=== PATIENT | female | born 1935 ===

== ENCOUNTER 2017-09-18 11:55 | Inpatient (IN) | payer MEDICARE, OTHER ==
[2017-09-18 11:55] VITALS: BMI 31.1
[2017-09-18] MEDS ORDERED: Albuterol-Ipratrop 3 mg / 0.5 (3 ml) UD INH STA (12:46)
[2017-09-18] MEDS ORDERED: Azithromycin 500 MG in Sodium Chloride 0.9% 250 ML IV STA (12:46)
[2017-09-18] MEDS ORDERED: Sodium Chloride 0.9% 1,000 ML IV STA (12:46)
--- NOTE | 2017-09-18 12:53 | ED PDOC ---
HPI: General Adult Time Seen by Provider: 09/18/17 12:18 Chief Complaint (Nursing): Cough, Cold, Congestion Chief Complaint (Provider): Cough, Pleuritic Chest Pain, Fever History Per: Patient History/Exam Limitations: no limitations Onset/Duration Of Symptoms: Days (2 days) Current Symptoms Are (Timing): Still Present Additional Complaint(s): Patient is an 82 y/o female with past medical history of hypertension who presents to the ED complaining of non-productive cough, pleuritic chest pain, and subjective fever x 2 days. She denies any nausea, vomiting, or diarrhea. PCP: Amy Dubois Past Medical History Reviewed: Historical Data, Nursing Documentation, Vital Signs Vital Signs: Last Vital Signs Temp 100.3 F H 09/18/17 12:31 Pulse 87 09/18/17 14:24 Resp 16 09/18/17 14:24 BP 150/93 H 09/18/17 14:24 Pulse Ox 96 09/18/17 14:24 - Medical History PMH: Arthritis, HTN, Hypercholesterolemia, Osteoporosis Denies: Chronic Kidney Disease - Surgical History Other surgeries: Eye surgery bilateral - Family History Family History: States: No Known Family Hx - Social History Current smoker - smoking cessation education provided: No Alcohol: None Drugs: Denies - Home Medications Home Medications: Ambulatory Orders Medication Instructions Recorded Alendronate Sodium [Alendronate 35 mg PO DAILY 03/16/16 (Fosamax)] Cholecalciferol (Vitamin D3) 50,000 unit PO QWK 03/16/16 [Vitamin D3] Valsartan/Hydrochlorothiazide 12.5 - 80 mg PO DAILY 03/16/16 [Valsartan-Hctz 80-12.5 mg Tab] Cholecalciferol (Vitamin D3) [Good 1 tab PO DAILY 03/22/16 [facility] Vitamin Health D 90 mg] Clopidogrel [Plavix] 75 mg PO DAILY 03/22/16 Omeprazole [Prilosec] 20 mg PO DAILY 03/22/16 Simvastatin 20 mg PO DAILY 03/22/16 Nitrofurantoin Macrocrystals 100 mg PO BID #14 cap 06/22/16 [Macrobid] Phenazopyridine [Pyridium] 200 mg PO TID PRN #6 tab 06/22/16 - Allergies Allergies/Adverse Reactions: Allergies Allergy/AdvReac Type Severity Reaction Status Date / Time No Known Allergies Allergy Verified 09/18/17 12:28 Review of Systems ROS Statement: Except As Marked, All Systems Reviewed And Found Negative Constitutional: Positive for: Fever (subjective) Cardiovascular: Positive for: Chest Pain (Pleuritic) Respiratory: Positive for: Cough (productive) Gastrointestinal: Negative for: Nausea, Vomiting, Diarrhea Physical Exam - Reviewed Nursing Documentation Reviewed: Yes Vital Signs Reviewed: Yes - Physical Exam Appears: Positive for: Non-toxic, No Acute Distress Head Exam: Positive for: ATRAUMATIC, NORMOCEPHALIC Skin: Positive for: Normal Color, Warm, Dry Eye Exam: Positive for: Normal appearance, EOMI, PERRL Neck: Positive for: Normal, Painless ROM, Supple Cardiovascular/Chest: Positive for: Regular Rate, Rhythm. Negative for: Murmur Respiratory: Positive for: Normal Breath Sounds, Wheezing (Bilateral). Negative for: Respiratory Distress Gastrointestinal/Abdominal: Positive for: Normal Exam, Soft. Negative for: Tenderness Back: Positive for: Normal Inspection. Negative for: L CVA Tenderness, R CVA Tenderness, Vertebral Tenderness Extremity: Positive for: Normal ROM. Negative for: Pedal Edema, Deformity Neurologic/Psych: Positive for: Alert, Oriented (x3), Other (Speaking in full sentences). Negative for: Motor/Sensory Deficits - Laboratory Results Result Diagrams: 09/18/17 12:58 09/18/17 12:58 - ECG Interpretation Of ECG: NSR @ 87, LAD, LVH (unchanged from 06/22/16). O2 Sat by Pulse Oximetry: 96 (RA) Pulse Ox Interpretation: Normal Medical Decision Making Medical Decision Makin:45 Initial Impression: Fever, Flu, Pneumonia, Bronchitis Initial Plan: --Venous Blood Gas Shock Panel --Comp Metabolic Panel --Troponin I --ED Urine Dipstick --CBC --PTT --Prothrombin Time --Chest X-Ray Portable (Stop Req) --Chest X-Ray Two Views --Albuterol/Ipratropium 3 ml INH --Sodium Chloride 0.9% IV 125 mls/hr --Rocephin 1 gm, Sodium Chloride 0.9% 100 ml IV --Zithromax 500mg, Sodium Chloride 0.9% 250 ml IV --Blood Culture --Urine Culture --Peak Flow Pre/Post Treatment --Influenza A B --Urinalysis 14:08 Chest X-Ray Results FINDINGS: Examination limited by habitus. LUNGS: No focal consolidation. Please note that chest x-ray has limited sensitivity for the detection of pulmonary masses. PLEURA: No significant pleural effusion. No definite pneumothorax . CARDIOVASCULAR: Cardiomegaly. 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 Atherosclerotic calcifications. OSSEOUS STRUCTURES: Degenerative changes. Osseous demineralization. VISUALIZED UPPER ABDOMEN: Unremarkable. OTHER FINDINGS: None. IMPRESSION: No focal consolidation, significant pleural effusion, or definite pneumothorax identified. Borderline cardiomegaly. 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 Correlate clinically. Atherosclerotic calcifications. Scribe Attestation: Documented by Keron Lopez, acting as a scribe for Shantelle Wisdom MD Provider Scribe Attestation: All medical record entries made by the Scribe were at my direction and personally dictated by me. I have reviewed the chart and agree that the record accurately reflects my personal performance of the history, physical exam, medical decision making, and the department course for this patient. I have also personally directed, reviewed, and agree with the discharge instructions and disposition. Disposition - Clinical Impression Clinical Impression: Influenza A, Acute wheezy bronchitis - Patient ED Disposition Is Patient to be Admitted: Yes - Disposition Disposition Time: 14:35 Condition: STABLE Forms: [employer] (Georgian) - Pt Status Changed To: Hospital Disposition Of: Inpatient - Admit Certification Admit to Inpatient:: After my assessment, the patient will require hospitalization for at least two midnights. This is because of the severity of symptoms shown, intensity of services needed, and/or the medical risk in this patient being treated as an outpatient. - POA Present On Arrival: None
[2017-09-18] MEDS ORDERED: Albuterol-Ipratrop 3 mg / 0.5 (3 ml) UD ONE (12:58)
[2017-09-18 13:04] LABS: VENOUS BLOOD GAS BASE EXCESS 2.9 mmol/L (0.0-2.0); VENOUS BLOOD GAS PCO2 43 mmHg (40-60); VENOUS BLOOD GAS PO2 28 mm/Hg (30-55); VENOUS BLOOD PH 7.42 (7.32-7.43)
[2017-09-18] MEDS ORDERED: cefTRIAXone IV 1 gm in Dextros 50 ML IVPB STA (13:08)
[2017-09-18] MEDS ORDERED: cefTRIAXone IV 1 gm in Dextros 50 ML IVPB ONE (13:16)
[2017-09-18 13:20] LABS: ALB/GLOB RATIO 1.2 (1.0-2.1); ALBUMIN 3.9 g/dL (3.5-5.0); ALT/SGPT 38 U/L (9-52); AST/SGOT 33 U/L (14-36); BLOOD UREA NITROGEN 16 mg/dl (7-17); CALCIUM 9.1 mg/dL (8.4-10.2); GFR AFRICAN-AMERICAN > 60; GFR NON-AFRICAN AMERICAN 60
[2017-09-18 13:55] LABS: BASO % 0.8 % (0.0-2.0); EOS % 0.1 % (0.0-4.0); HEMOGLOBIN 12.8 g/dL (12.0-16.0); LYMPH # 0.8 K/uL (1.0-4.3); LYMPH % 16.5 % (20.0-40.0); MEAN CELL VOLUME 83.6 fl (81.0-99.0); MEAN CORPUSCULAR HEMOGLOBIN 27.3 pg (27.0-31.0); MEAN CORPUSCULAR HGB CONC 32.7 g/dL (33.0-37.0); MEAN PLATELET VOLUME 10.7 fl (7.2-11.7); MONO # 0.6 K/uL (0.0-0.8); MONO % 12.6 % (0.0-10.0); NEUT # 3.4 K/uL (1.8-7.0); NRBC % 0.2 % (0.0-0.0); RBC 4.68 Mil/uL (3.80-5.20); RED CELL DISTRIBUTION WIDTH 14.4 % (11.5-14.5); WHITE BLOOD COUNT 4.8 K/uL (4.8-10.8)
[2017-09-18 14:07] LABS: INR 1.1 (0.9-1.2); PARTIAL THROMBOPLASTIN TIME 31.6 Seconds (25.6-37.1); PROTHROMBIN TIME 11.9 Seconds (9.8-13.1)
--- NOTE | 2017-09-18 14:10 | RAD ---
HISTORY: Cough, fever COMPARISON: Chest x-ray performed 06/22/16 TECHNIQUE: Chest PA and lateral FINDINGS: Examination limited by habitus. LUNGS: No focal consolidation. Please note that chest x-ray has limited sensitivity for the detection of pulmonary masses. PLEURA: No significant pleural effusion. No definite pneumothorax . CARDIOVASCULAR: Cardiomegaly. 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 Atherosclerotic calcifications. OSSEOUS STRUCTURES: Degenerative changes. Osseous demineralization. VISUALIZED UPPER ABDOMEN: Unremarkable. OTHER FINDINGS: None. IMPRESSION: No focal consolidation, significant pleural effusion, or definite pneumothorax identified. Borderline cardiomegaly. 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 Correlate clinically. Atherosclerotic calcifications.
[2017-09-18 14:22] LABS: SQUAMOUS EPITHIAL 2 /hpf (0-5); URINE BILIRUBIN NEGATIVE (NEGATIVE); URINE BLOOD NEGATIVE (NEGATIVE); URINE CLARITY CLOUDY (Clear); URINE COLOR YELLOW (YELLOW); URINE GLUCOSE (UA) NEG (Normal); URINE LEUKOCYTE ESTERASE NEG Leu/uL (Negative); URINE NITRATE NEGATIVE (NEGATIVE); URINE PROTEIN 30 mg/dL (NEGATIVE); URINE UROBILINOGEN 0.2-1.0 mg/dL (0.2-1.0)
[2017-09-18] MEDS ORDERED: Albuterol-Ipratrop 3 mg / 0.5 (3 ml) UD INH PRN (15:41)
--- NOTE | 2017-09-19 01:27 | CP.PCM.HP ---
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 - HEENT Hx HEENT Problems: Yes Hx Cataracts: Yes - RENAL Hx Chronic Kidney Disease: No - ENDOCRINE/METABOLIC Hx Endocrine Disorders: No - HEMATOLOGICAL/ONCOLOGICAL Hx Blood Disorders: No Hx AIDS: No Hx Human Immunodeficiency Virus (HIV): No - INTEGUMENTARY Hx Dermatological Problems: No - MUSCULOSKELETAL/RHEUMATOLOGICAL Hx Arthritis: Yes Hx Falls: Yes Hx Osteoporosis: Yes - GASTROINTESTINAL Hx Gastrointestinal Disorders: No - GENITOURINARY/GYNECOLOGICAL Hx Genitourinary Disorders: No - PSYCHIATRIC Hx Psychophysiologic Disorder: No Hx Emotional Abuse: No Hx Physical Abuse: No Hx Substance Use: No - SURGICAL HISTORY Hx Surgeries: Yes Hx Eye Surgery: Yes (BILATERAL) - ANESTHESIA Hx Anesthesia: Yes Hx Anesthesia Reactions: No Hx Malignant Hyperthermia: No Has any member of the family had a problem w/ anesthesia?: No Meds Allergies/Adverse Reactions: Allergies Allergy/AdvReac Type Severity Reaction Status Date / Time No Known Allergies Allergy Verified 09/18/17 12:28 Results - Vital Signs Recent Vital Signs: Last Vital Signs Temp 98.3 F 09/19/17 00:19 Pulse 66 09/19/17 00:19 Resp 18 09/19/17 00:19 BP 150/76 09/19/17 00:19 Pulse Ox 95 09/19/17 00:19 - Labs Result Diagrams: 09/18/17 12:58 09/18/17 12:58 Labs: Laboratory Results - last 24 hr 09/18/17 09/18/17 09/18/17 12:51 12:58 12:58 WBC 4.8 D RBC 4.68 Hgb 12.8 Hct 39.1 MCV 83.6 MCH 27.3 MCHC 32.7 L RDW 14.4 Plt Count 110 L MPV 10.7 Neut % (Auto) 70.0 Lymph % (Auto) 16.5 L [place] % (Auto) 12.6 H Eos % (Auto) 0.1 Baso % (Auto) 0.8 Neut # 3.4 Lymph # 0.8 L [place] # 0.6 Eos # 0.0 Baso # 0.0 PT INR APTT pO2 28 L VBG pH 7.42 VBG pCO2 43 VBG HCO3 26.2 VBG Total CO2 29.2 H VBG O2 Sat (Calc) 63.4 VBG Base Excess 2.9 H VBG Potassium 4.0 Sodium 137.0 136 Chloride 107.0 105 Glucose 107 H Lactate 1.1 FiO2 21.0 Potassium 3.7 Carbon Dioxide 25 Anion Gap 10 BUN 16 Creatinine 0.9 Est GFR ( Amer) > 60 Est GFR (Non-Af Amer) 60 Random Glucose 103 Calcium 9.1 Total Bilirubin 0.6 AST 33 ALT 38 Alkaline Phosphatase 53 Troponin I 0.0340 Total Protein 7.1 Albumin 3.9 Globulin 3.2 Albumin/Globulin Ratio 1.2 Venous Blood Potassium 4.0 Urine Color Urine Clarity Urine pH Ur Specific [place] Urine Protein Urine Glucose (UA) Urine Ketones Urine Blood Urine Nitrate Urine Bilirubin Urine Urobilinogen Ur Leukocyte Esterase Urine RBC (Auto) Urine Microscopic WBC Ur Squamous Epith Cells Hyaline Casts Influenza Typ A,B (EIA) 09/18/17 09/18/17 09/18/17 12:58 12:58 13:55 WBC RBC Hgb Hct MCV MCH MCHC RDW Plt Count MPV Neut % (Auto) Lymph % (Auto) [place] % (Auto) Eos % (Auto) Baso % (Auto) Neut # Lymph # [place] # Eos # Baso # PT 11.9 INR 1.1 APTT 31.6 pO2 VBG pH VBG pCO2 VBG HCO3 VBG Total CO2 VBG O2 Sat (Calc) VBG Base Excess VBG Potassium Sodium Chloride Glucose Lactate FiO2 Potassium Carbon Dioxide Anion Gap BUN Creatinine Est GFR ( Amer) Est GFR (Non-Af Amer) Random Glucose Calcium Total Bilirubin AST ALT Alkaline Phosphatase Troponin I Total Protein Albumin Globulin Albumin/Globulin Ratio Venous Blood Potassium Urine Color Yellow Urine Clarity Cloudy Urine pH 5.0 Ur Specific [place] 1.018 Urine Protein 30 Urine Glucose (UA) Neg Urine Ketones Negative Urine Blood Negative Urine Nitrate Negative Urine Bilirubin Negative Urine Urobilinogen 0.2-1.0 Ur Leukocyte Esterase Neg Urine RBC (Auto) 4 H Urine Microscopic WBC 2 Ur Squamous Epith Cells 2 Hyaline Casts 3-5 H Influenza Typ A,B (EIA) Pos for influenza a H
[2017-09-19 05:49] LABS: BASO % 0.1 % (0.0-2.0); HEMOGLOBIN 12.6 g/dL (12.0-16.0); LYMPH # 0.7 K/uL (1.0-4.3); LYMPH % 13.6 % (20.0-40.0); MEAN CORPUSCULAR HEMOGLOBIN 27.5 pg (27.0-31.0); MEAN CORPUSCULAR HGB CONC 33.1 g/dL (33.0-37.0); MEAN PLATELET VOLUME 10.6 fl (7.2-11.7); MONO # 0.3 K/uL (0.0-0.8); MONO % 6.7 % (0.0-10.0); NEUT # 4.1 K/uL (1.8-7.0); NEUT % 79.6 % (50.0-75.0); NRBC % 0.1 % (0.0-0.0); RBC 4.6 Mil/uL (3.80-5.20); RED CELL DISTRIBUTION WIDTH 14.1 % (11.5-14.5); WHITE BLOOD COUNT 5.2 K/uL (4.8-10.8)
[2017-09-19 06:24] LABS: BLOOD UREA NITROGEN 17 mg/dl (7-17); CALCIUM 9.2 mg/dL (8.4-10.2); GFR AFRICAN-AMERICAN > 60; GFR NON-AFRICAN AMERICAN > 60
[2017-09-19] MEDS ORDERED: cefTRIAXone 1,000 MG in PED IV SYRINGE 1 SYR IVPB SCH (09:00)
[2017-09-19] MEDS ORDERED: VALSARTAN PO SCH (09:00)
[2017-09-19] MEDS ORDERED: Patient's Own Med (Simvastatin [Simvastatin] 20 MG) PO SCH (09:00)
[2017-09-19] MEDS ORDERED: HYDROCHLOROTHIAZIDE PO SCH (09:00)
[2017-09-19] MEDS ORDERED: cefTRIAXone IV 1 gm in Dextros 50 ML IVPB SCH (09:00)
[2017-09-19] MEDS: Cholecalciferol 1,000 INTLU TAB PO SCH (09:19)
[2017-09-19] MEDS: Pantoprazole 40 mg EC Tab PO SCH (09:19)
[2017-09-19] MEDS: Azithromycin 500 MG in Sodium Chloride 0.9% 250 ML IVPB SCH (10:14)
[2017-09-19] MEDS: Promethazine 12.5 mg/10 ml Syrup PO PRN ×2 (13:50→20:42)
[2017-09-20 00:31] VITALS: RESP 18
--- NOTE | 2017-09-20 00:44 | CP.PCM.PN ---
Subjective - Date & Time of Evaluation Date of Evaluation: 09/19/17 Time of Evaluation: 17:00 Objective - Vital Signs/Intake and Output Vital Signs (last 24 hours): Temp Pulse Resp BP Pulse Ox 98.4 F 91 H 18 130/77 95 09/20/17 00:30 09/20/17 00:30 09/20/17 00:30 09/20/17 00:30 09/20/17 00:30 - Medications Medications: Current Medications Albuterol/Ipratropium (Duoneb 3 Mg/0.5 Mg (3 Ml) Ud) 3 ml INH RQ6 [facility] Amlodipine Besylate (Norvasc) 5 mg PO DAILY [facility] Last Admin: 09/19/17 17:20 Dose: 5 mg Atorvastatin Calcium (Lipitor) 10 mg PO DAILY [facility] Last Admin: 09/19/17 09:19 Dose: 10 mg Cholecalciferol (Vitamin D) 1,000 intlu PO DAILY [facility] Last Admin: 09/19/17 09:19 Dose: 1,000 intlu Clopidogrel Bisulfate (Plavix) 75 mg PO DAILY [facility] Last Admin: 09/19/17 09:19 Dose: 75 mg Hydrochlorothiazide (Microzide) 12.5 mg PO DAILY [facility] Last Admin: 09/19/17 09:19 Dose: 12.5 mg Azithromycin 500 mg/ Sodium (Chloride) 250 mls @ 250 mls/hr IVPB DAILY [facility] PRN Reason: Protocol Last Admin: 09/19/17 10:14 Dose: 250 mls/hr Ceftriaxone Sodium 1 gm/ (Sodium Chloride) 100 mls @ 100 mls/hr IVPB DAILY [facility] Last Admin: 09/19/17 10:22 Dose: 100 mls/hr Oseltamivir Phosphate (Tamiflu Cap) 75 mg PO BID [facility] PRN Reason: Protocol Last Admin: 09/19/17 17:20 Dose: 75 mg Pantoprazole Sodium (Protonix Ec Tab) 40 mg PO DAILY [facility] Last Admin: 09/19/17 09:19 Dose: 40 mg Promethazine HCl (Phenergan Syrup) 12.5 mg PO Q6 PRN PRN Reason: Cough Last Admin: 09/19/17 20:42 Dose: 12.5 mg Valsartan (Diovan) 80 mg PO DAILY [facility] Last Admin: 09/19/17 09:19 Dose: 80 mg - Labs Labs: 09/19/17 05:15 09/19/17 05:15 PT 11.9 Seconds (9.8-13.1) 09/18/17 12:58 INR 1.1 (0.9-1.2) 09/18/17 12:58 APTT 31.6 Seconds (25.6-37.1) 09/18/17 12:58
[2017-09-20] MEDS: Albuterol-Ipratrop 3 mg / 0.5 (3 ml) UD INH SCH ×3 (01:03→13:11)
[2017-09-20 05:32] LABS: BASO % 0.5 % (0.0-2.0); EOS % 0.3 % (0.0-4.0); HEMOGLOBIN 12.7 g/dL (12.0-16.0); LYMPH # 2.2 K/uL (1.0-4.3); LYMPH % 34.8 % (20.0-40.0); MEAN CELL VOLUME 84.3 fl (81.0-99.0); MEAN CORPUSCULAR HEMOGLOBIN 26.9 pg (27.0-31.0); MEAN PLATELET VOLUME 11.2 fl (7.2-11.7); MONO # 0.4 K/uL (0.0-0.8); NEUT # 3.7 K/uL (1.8-7.0); NEUT % 57.4 % (50.0-75.0); NRBC % 0.1 % (0.0-0.0); RBC 4.73 Mil/uL (3.80-5.20); RED CELL DISTRIBUTION WIDTH 14.2 % (11.5-14.5); WHITE BLOOD COUNT 6.4 K/uL (4.8-10.8)
[2017-09-20] MEDS: Cholecalciferol 1,000 INTLU TAB PO SCH (08:41)
[2017-09-20] MEDS: Pantoprazole 40 mg EC Tab PO SCH (08:43)
[2017-09-20] MEDS: Azithromycin 500 MG in Sodium Chloride 0.9% 250 ML IVPB SCH (08:43)
[2017-09-20] MEDS: Promethazine 12.5 mg/10 ml Syrup PO PRN (08:44)
[2017-09-20] MEDS ORDERED: levoFLOXacin 500 mg in D5W 500 MG/100 ML BAG IVPB SCH (12:15)
[2017-09-20 12:50] VITALS: BP 144/87; PULSE 83; TEMP 98.3; O2SAT 95
--- NOTE | 2017-09-20 22:56 | CP.PCM.DIS ---
Provider - Provider Date of Admission: 09/18/17 14:31 Attending physician: Anayeli Barraza MD Time Spent in preparation of Discharge (in minutes): 25 Hospital Course - Lab Results Lab Results: Micro Results 09/18/17 12:58 Blood Blood Culture - Preliminary NO GROWTH AFTER 48 HOURS 09/18/17 13:55 Urine,Clean Catch Urine Culture - Final Proteus Mirabilis Most Recent Lab Values WBC 6.4 K/uL (4.8-10.8) 09/20/17 04:40 RBC 4.73 Mil/uL (3.80-5.20) 09/20/17 04:40 Hgb 12.7 g/dL (12.0-16.0) 09/20/17 04:40 Hct 39.8 % (34.0-47.0) 09/20/17 04:40 MCV 84.3 fl (81.0-99.0) 09/20/17 04:40 MCH 26.9 pg (27.0-31.0) L 09/20/17 04:40 MCHC 32.0 g/dL (33.0-37.0) L 09/20/17 04:40 RDW 14.2 % (11.5-14.5) 09/20/17 04:40 Plt Count 124 K/uL (130-400) L 09/20/17 04:40 MPV 11.2 fl (7.2-11.7) 09/20/17 04:40 Neut % (Auto) 57.4 % (50.0-75.0) 09/20/17 04:40 Lymph % (Auto) 34.8 % (20.0-40.0) 09/20/17 04:40 [place] % (Auto) 7.0 % (0.0-10.0) 09/20/17 04:40 Eos % (Auto) 0.3 % (0.0-4.0) 09/20/17 04:40 Baso % (Auto) 0.5 % (0.0-2.0) 09/20/17 04:40 Neut # 3.7 K/uL (1.8-7.0) 09/20/17 04:40 Lymph # 2.2 K/uL (1.0-4.3) 09/20/17 04:40 [place] # 0.4 K/uL (0.0-0.8) 09/20/17 04:40 Eos # 0.0 K/uL (0.0-0.7) 09/20/17 04:40 Baso # 0.0 K/uL (0.0-0.2) 09/20/17 04:40 PT 11.9 Seconds (9.8-13.1) 09/18/17 12:58 INR 1.1 (0.9-1.2) 09/18/17 12:58 APTT 31.6 Seconds (25.6-37.1) 09/18/17 12:58 pO2 28 mm/Hg (30-55) L 09/18/17 12:51 VBG pH 7.42 (7.32-7.43) 09/18/17 12:51 VBG pCO2 43 mmHg (40-60) 09/18/17 12:51 VBG HCO3 26.2 mmol/L 09/18/17 12:51 VBG Total CO2 29.2 mmol/L (22-28) H 09/18/17 12:51 VBG O2 Sat (Calc) 63.4 % (40-65) 09/18/17 12:51 VBG Base Excess 2.9 mmol/L (0.0-2.0) H 09/18/17 12:51 VBG Potassium 4.0 mmol/L (3.6-5.2) 09/18/17 12:51 Sodium 137.0 mmol/L (132-148) 09/18/17 12:51 Chloride 107.0 mmol/L (98-107) 09/18/17 12:51 Glucose 107 mg/dL (65-105) H 09/18/17 12:51 Lactate 1.1 mmol/L (0.7-2.1) 09/18/17 12:51 FiO2 21.0 % 09/18/17 12:51 Sodium 146 mmol/l (132-148) 09/19/17 05:15 Potassium 4.5 MMOL/L (3.6-5.0) 09/19/17 05:15 Chloride 106 mmol/L (98-107) 09/19/17 05:15 Carbon Dioxide 31 mmol/L (22-30) H 09/19/17 05:15 Anion Gap 14 (10-20) 09/19/17 05:15 BUN 17 mg/dl (7-17) 09/19/17 05:15 Creatinine 0.8 mg/dl (0.7-1.2) 09/19/17 05:15 Est GFR ( Amer) > 60 09/19/17 05:15 Est GFR (Non-Af Amer) > 60 09/19/17 05:15 Random Glucose 137 mg/dL (65-105) H 09/19/17 05:15 Calcium 9.2 mg/dL (8.4-10.2) 09/19/17 05:15 Total Bilirubin 0.6 mg/dl (0.2-1.3) 09/18/17 12:58 AST 33 U/L (14-36) 09/18/17 12:58 ALT 38 U/L (9-52) 09/18/17 12:58 Alkaline Phosphatase 53 U/L (38-126) 09/18/17 12:58 Troponin I 0.0340 ng/mL (0.00-0.120) 09/18/17 12:58 Total Protein 7.1 G/DL (6.3-8.2) 09/18/17 12:58 Albumin 3.9 g/dL (3.5-5.0) 09/18/17 12:58 Globulin 3.2 gm/dL (2.2-3.9) 09/18/17 12:58 Albumin/Globulin Ratio 1.2 (1.0-2.1) 09/18/17 12:58 Venous Blood Potassium 4.0 mmol/L (3.6-5.2) 09/18/17 12:51 Urine Color Yellow (YELLOW) 09/18/17 13:55 Urine Clarity Cloudy (Clear) 09/18/17 13:55 Urine pH 5.0 (5.0-8.0) 09/18/17 13:55 Ur Specific [place] 1.018 (1.003-1.030) 09/18/17 13:55 Urine Protein 30 mg/dL (NEGATIVE) 09/18/17 13:55 Urine Glucose (UA) Neg mg/dL (Normal) 09/18/17 13:55 Urine Ketones Negative mg/dL (NEGATIVE) 09/18/17 13:55 Urine Blood Negative (NEGATIVE) 09/18/17 13:55 Urine Nitrate Negative (NEGATIVE) 09/18/17 13:55 Urine Bilirubin Negative (NEGATIVE) 09/18/17 13:55 Urine Urobilinogen 0.2-1.0 mg/dL (0.2-1.0) 09/18/17 13:55 Ur Leukocyte Esterase Neg [place]/uL (Negative) 09/18/17 13:55 Urine RBC (Auto) 4 /hpf (0-3) H 09/18/17 13:55 Urine Microscopic WBC 2 /hpf (0-5) 09/18/17 13:55 Ur Squamous Epith Cells 2 /hpf (0-5) 09/18/17 13:55 Hyaline Casts 3-5 /hpf (0-2) H 09/18/17 13:55 Influenza Typ A,B (EIA) Pos for influenza a (NEGATIVE) H 09/18/17 12:58 Discharge Exam - Head Exam Head Exam: ATRAUMATIC, NORMOCEPHALIC Discharge Plan - Discharge Medications Prescriptions: Levofloxacin [Levaquin] 500 mg PO DAILY #5 tablet Promethazine [Phenergan Syrup] 12.5 mg PO Q6 PRN #14 dose PRN Reason: Cough Clopidogrel [Plavix] 75 mg PO DAILY #30 tab Pantoprazole [Protonix EC Tab] 40 mg PO DAILY #14 ect Oseltamivir [Tamiflu Cap] 75 mg PO BID #6 cap Cholecalciferol [Vitamin D 1000 IU] 1,000 intlu PO DAILY #30 tab - Follow Up Plan Condition: STABLE Disposition: HOME/ ROUTINE Referrals: Amy Dubois MD [Family Provider] -
== END 2017-09-20 15:00 | disposition home health service (06) | DRG 195 ==
LOC: H.ER 11:55 → H.ERHOLD 14:31 → H.TEL 18:56
PROVIDERS: ADMIT Internal Medicine; ATTEND Internal Medicine
DX: J10.1 Influenza due to other identified influenza virus with other respiratory manifestations (principal); J20.9 Acute bronchitis, unspecified; E78.00 Pure hypercholesterolemia, unspecified; I10 Essential (primary) hypertension; M81.0 Age-related osteoporosis without current pathological fracture; M19.90 Unspecified osteoarthritis, unspecified site; Z79.02 Long term (current) use of antithrombotics/antiplatelets; Z79.83 Long term (current) use of bisphosphonates; Z86.73 Personal history of transient ischemic attack (TIA), and cerebral infarction without residual deficits